=== PATIENT | female | born 1990 | race Asian ===

== ENCOUNTER 2017-06-17 01:10 | Emergency (ER) | payer SELFPAY ==
[~2017-06-17] VITALS: Ht 165.1 cm; Wt 48.5 kg
[2017-06-17 01:20] VITALS: BP 145/93
--- NOTE | 2017-06-17 01:23 | NUR ---
PT AMBULATED TO ER BED 12
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
--- NOTE | 2017-06-17 01:42 | NUR ---
Patient being evaluated by physician at bedside.
--- NOTE | 2017-06-17 02:08 | NUR ---
PT TO XRAY VIA [facility], WITH SEARCH ADVERTISING STRATEGIST. NO SOB, PT IN NO APPARENT DISTRESS AT THIS TIME.
--- NOTE | 2017-06-17 02:20 | NUR ---
PT BACK FROM XRAY. PT TO BED AND POSITIONED FOR COMFORT. WILL CONTINUE TO MONITOR.
[2017-06-17 02:35] VITALS: BP 142/90
== END 2017-06-17 02:35 | disposition home or self-care (01) ==
LOC: MED 01:10
DX: S16.1XXA Strain of muscle, fascia and tendon at neck level, initial encounter (principal); Z88.0 Allergy status to penicillin; V43.52XA Car driver injured in collision with other type car in traffic accident, initial encounter; Y93.I9 Activity, other involving external motion; Y92.411 Interstate highway as the place of occurrence of the external cause; Y99.8 Other external cause status
CPT/HCPCS: 72040; 73030; 81002; 81025; 99284